=== PATIENT | female | born 1970 | race Caucasian/White ===

== ENCOUNTER 2025-05-30 00:30 | Inpatient (IN) ==
[2025-05-30 01:00] LABS: Hematocrit (blood only) 35.3 % (37.0-47.0); Hemoglobin 12.4 g/dl (12.0-16.0); Mean Corpuscular Hemoglobin 31.7 pg (25.0-34.0); Mean Corpuscular Volume 90.3 fL (80.0-100.0); Platelet Count 101 K/uL (130-400); RDW Standard Deviation 42.1 fL (36.4-46.3); Red Blood Count 3.91 M/uL (4.20-5.40); White Blood Count 13.45 K/ul (4.8-10.8)
[2025-05-30 01:36] LABS: INR 1.0 (0.9-1.1); Partial Thromboplastin Time 26 Seconds (21-31); Prothrombin Time 11.0 Seconds (9.0-12.0)
[2025-05-30 01:37] LABS: Alanine Aminotransferase 18.0 U/L (7-52); Albumin Globulin Ratio 1.2 (0.9-2); Albumin Level 5.0 gm/dl (3.4-5.0); Alkaline Phosphatase 110.0 U/L (34-104); Anion Gap 14.0 (3-11); Bilirubin,Total 1.0 mg/dl (0.2-1.0); Blood Urea Nitrogen 23.0 mg/dl (6-23); Calcium 10.2 mg/dl (8.6-10.3); Carbon Dioxide 26.0 mmol/L (21-32); Chloride 97.0 mmol/L (98-107); Creatinine Clr Calc Pharmacy 31.8 ml/min; Globulin 4.1 gm/dl (2.5-4.0); Glucose 108.0 mg/dl (70-99(Fasting)); Magnesium 1.7 mg/dl (1.7-2.4); Potassium 2.2 mmol/L (3.5-5.1); Sodium 137.0 mmol/L (136-145); Thyroid Stimulating Hormone 5.07 uIu/ml (0.300-4.500); Total Protein 9.1 gm/dl (6.0-8.3)
[2025-05-30 01:44] LABS: ALC (manual) 5.78 K/uL (1.2-3.4); ANC (manual) 7.13 K/uL (1.4-6.5); Large Granular Lymph # (manua 3.50 K/uL; Large Granular Lymph % (manual) 26 %
[2025-05-30] MEDS: MAGNESIUM SULFATE / D5W 1 GM/100 ML BAG IV STA (01:45)
[2025-05-30] MEDS: POTASSIUM CHLORIDE CRTAB 20 MEQ TABCR PO STA ×2 (01:45→17:13)
[2025-05-30] MEDS: POTASSIUM CHLORIDE / WTR 10 MEQ/100 ML PLCT IV SCH (01:45)
--- NOTE | 2025-05-30 02:24 | Emergency Department Note ---
Impression & Plan Hypokalemia, Elevated troponin, Acute kidney injury, Leukocytosis, Sleep apnea ED Provider Note CHIEF COMPLAINT: "My doctor called me and told me my labs were abnormal and they needed to come here" HISTORY OF PRESENT ILLNESS: This 54-year-old female patient presents to the emergency department via private vehicle for evaluation of abnormal labs. The patient states her potassium and creatinine were abnormal, but was uncertain of the levels. She states she had routine labs drawn 2 days ago and was referred to the emergency department due to the abnormalities. The patient denies any chest pain or dyspnea. She denies any palpitations. No leg pain or swelling. No abdominal pain. She is nauseous but this is not unusual for her on her metformin and Mounjaro. The patient denies any other abnormal symptoms and states she feels in her usual state of health at this time. History provided by: Patient REVIEW OF SYSTEMS: A 10 system review of systems was performed with positives and pertinent negatives listed in the history of present illness. All other systems were reviewed and are negative. ALLERGIES: Penicillin PHYSICAL EXAM: VITALS: Vitals are noted on the nurse's note and reviewed by myself. GENERAL: This is a 54-year-old female, in no acute distress, nondiaphoretic, well-developed well-nourished. SKIN: The skin was without rashes, erythema, edema, or bruising. There is no tenting of the skin. Capillary refill less than 2 seconds. HEAD: Normocephalic atraumatic. EYES: Conjunctivae without injection, sclerae without icterus. MOUTH: Mucous membranes moist. NECK: Supple without nuchal rigidity. No lymphadenopathy. Cervical spine is nontender. No JVD. HEART: Regular rate and rhythm without murmurs gallops or rubs. LUNGS: Clear to auscultation bilaterally without wheezes, rales or rhonchi. No retractions or accessory muscle use. ABDOMEN: Positive bowel sounds x 4. Soft, nontender, without masses or organomegaly. Norton sign negative. No guarding or rebound tenderness. MUSCULOSKELETAL: No muscle atrophy, erythema, or edema noted. Full range of motion without joint tenderness in all extremities. No tenderness to palpation. Normal gait. Strength 5/5 throughout. NEURO: Patient was alert and oriented to person place and time. Normal sensation to light and sharp touch. Deep tendon reflexes 2+ throughout. No focal neurological deficits. An order was placed for continuous classroom monitor. The monitor showed a normal sinus rhythm at a ventricular rate of 98 bpm, per my interpretation. EKG was reviewed by myself and found to be sinus tachycardia at a rate of 114 beats per minute and per my interpretation reveals no ST elevation or depression. No T wave inversion. No prior EKG available for comparison. EMERGENCY DEPARTMENT COURSE: The patient was evaluated as above. [facility] resident was able to pull up the patient's outpatient labs and noted she had a potassium of 2.6 and creatinine of 2.2. On arrival to the emergency department, the patient is anxious but in no acute distress. She denies any chest pain or palpitations. EKG as above. IV access was obtained, labs were drawn. Labs reviewed. Per my interpretation, leukocytosis of 13.45. No concerning anemia. Thrombocytopenia with a platelet count of 101,000. INR 1.0. Potassium low at 2.2. Sodium is 137. Creatinine 1.96. AST mildly elevated at 58, ALT is 18. Alkaline phosphatase 110. Troponin is elevated 18.9. Lipase is 179. TSH is elevated 5.070, free T4 is 1.05. Alcohol is elevated at 106.3. Given the hypokalemia, the patient was started on oral and IV potassium as well as IV magnesium. [facility] Please see hospitalist dictation regarding ongoing management of this patient. Case was discussed with the attending physician. I attest that I have personally reviewed the patient medication list. I attest that I have reviewed the patient's blood pressure and it was found to be elevated. Suspect this to be situational in nature. GCS: 15 In the evaluation and treatment of this patient the following differential diagnoses were entertained: Electrolyte abnormality, metabolic abnormality, ACS, dysrhythmia, malignancy, among others. The chart was completed utilizing [employer] Speech voice recognition software. Grammatical errors, random word insertions, pronoun errors, and incomplete sentences are an occasional consequence of this system due to software limitations, ambient noise, and hardware issues. Any formal questions or concerns about the content, text, or information contained within the body of this dictation should be directly addressed to the provider for clarification. Past Med/Surg History Problem List (Updated 05/30/25 @ 04:05 by Irma Lara PA-C) Leukocytosis (Acute) Elevated troponin (Acute) Hypomagnesemia Hypokalemia (Acute) Acute kidney injury (Acute) Vasomotor symptoms due to menopause Prediabetes Hypertension Sleep apnea (Acute) Surgical History History of tonsillectomy and adenoidectomy S/P surgery on nasal septum H/O wisdom tooth extraction History of endometrial ablation Family History Mother Endometrial cancer Father Colorectal cancer Grandmother (Maternal) Diabetes Denies family history of Osteoporosis Heart disease Myocardial infarction Breast cancer Social History Smoking Status: Never smoker Hx Alcohol Use: Yes Alcohol type: hard liquor Hx Substance Use: No Preferred Language: Tajik Compliance Technician Required: No marital status: Current Living Situation: Spouse current occupational status: employed current occupation: [employer] How many Children do You have: 2 How many Children do You have Comment: son in Culinary schoo at [employer] Feels Safe at Home: Yes Safety Concerns: Feels Safe At This Time caffeine: Yes Dental Care, Regularly: Yes Physical Activity Frequency: 1-2 Times per Week Seatbelt Use: always Sunscreen Use: Yes Allergies Allergies Allergy/AdvReac Type Severity Reaction Status Date / Time Penicillins Allergy Unknown UNKNOWN-YRS Verified 05/30/25 01:19 AGO Home Meds Home Medications Medication Instructions Recorded Confirmed cetirizine 10 mg capsule (Zyrtec) 10 mg PO DAILY PRN Congestion 04/24/24 05/30/25 duloxetine 60 mg capsule,delayed 60 mg PO DAILY 04/24/24 05/30/25 release hydroxyzine HCl 10 mg tablet 10 mg PO DIRECTED PRN Anxiety 04/24/24 05/30/25 losartan 50 mg tablet 50 mg PO DAILY 04/24/24 05/30/25 metformin 500 mg tablet,extended 500 mg PO BID 05/30/25 05/30/25 release 24 hr rosuvastatin 40 mg tablet 40 mg PO DAILY 05/30/25 05/30/25 tirzepatide 7.5 mg/0.5 mL 7.5 mg subcut WK 05/30/25 05/30/25 subcutaneous pen injector (Mounjaro) Results & Data (ED) Vital Signs Vital Signs - 24 hr 05/30/25 00:31 05/30/25 00:33 05/30/25 00:39 Temperature 36.8 C Temperature Source Oral Pulse Rate 115 H Pulse Rate [Apical] 124 H Pulse Rhythm [Apical] Regular Pulse Strength [Apical] Normal Respiratory Rate 20 20 Respiratory Effort / Characteristics Non-Labored Non-Labored Spontaneous Respiratory Depth Normal Normal Respiratory Pattern Regular Regular Blood Pressure 141/80 H Blood Pressure [Left Arm] 172/92 H Blood Pressure Mean 100 Blood Pressure Mean [Left Arm] 118 Blood Pressure Position [Left Arm] Sitting Pulse Oximetry 95 97 95 Oxygen Delivery Method Room Air Room Air Room Air Sepsis Recent Fever Within 48 Hours No Sepsis New/Unexplained Change in Mental Status No Sepsis Action Taken by Nursing No Action Required 05/30/25 01:22 05/30/25 02:25 Temperature Temperature Source Pulse Rate 98 H Pulse Rate [Apical] 100 H Pulse Rhythm [Apical] Pulse Strength [Apical] Respiratory Rate 17 Respiratory Effort / Characteristics Non-Labored Spontaneous Respiratory Depth Normal Respiratory Pattern Regular Blood Pressure Blood Pressure [Left Arm] 124/84 Blood Pressure Mean Blood Pressure Mean [Left Arm] 97 Blood Pressure Position [Left Arm] Pulse Oximetry 94 Oxygen Delivery Method Room Air Sepsis Recent Fever Within 48 Hours Sepsis New/Unexplained Change in Mental Status Sepsis Action Taken by Nursing Laboratory Data 05/30/25 00:46 05/30/25 00:46 Lab Results 05/30/25 Range/Units 00:46 WBC 13.45 H (4.8-10.8) K/ul RBC 3.91 L (4.20-5.40) M/uL Hgb 12.4 (12.0-16.0) g/dl Hct 35.3 L (37.0-47.0) % MCV 90.3 (80.0-100.0) fL MCH 31.7 (25.0-34.0) pg MCHC 35.1 (32.0-36.0) g/dL RDW Std Deviation 42.1 (36.4-46.3) fL RDW Coeff of Tiffani 12.7 (11.5-14.5) % Plt Count 101 L (130-400) K/uL MPV 9.8 (9.4-12.4) fL Neutrophils % (Manual) 53 % Lymphocytes % (Manual) 17 % Basophils % (Manual) 4 % Neutrophils # (Manual) 7.13 H (1.40-6.50) K/uL Total Absolute Neuts 7.13 H (1.4-6.5) K/uL Lymphocytes # (Manual) 2.29 (1.2-3.4) K/uL Total Abs Lymphocytes 5.78 H (1.2-3.4) K/uL Basophils # (Manual) 0.54 H (0-0.2) K/uL Large Granular Lymphs 26 % # Lrg Granular Lymphs 3.50 K/uL PT 11.0 (9.0-12.0) Seconds INR 1.0 (0.9-1.1) APTT 26 (21-31) Seconds PTT Ratio 1.0 Sodium 137 (136-145) mmol/L Potassium 2.2 L* (3.5-5.1) mmol/L Chloride 97 L (98-107) mmol/L Carbon Dioxide 26 (21-32) mmol/L Anion Gap 14 H (3-11) BUN 23 (6-23) mg/dl Creatinine 1.96 H (0.6-1.2) mg/dl Est Cr Clr Drug Dosing 31.8 ml/min eGFR 29.67 BUN/Creatinine Ratio 11.7 (10-20) Glucose 108 H (70-99(Fasting)) mg/dl Calcium 10.2 (8.6-10.3) mg/dl Magnesium 1.7 (1.7-2.4) mg/dl Total Bilirubin 1.0 (0.2-1.0) mg/dl AST 58 H (13-39) U/L ALT 18 (7-52) U/L Alkaline Phosphatase 110 H (34-104) U/L Troponin I High Sens 18.9 H (0-14) pg/ml Total Protein 9.1 H (6.0-8.3) gm/dl Albumin 5.0 (3.4-5.0) gm/dl Globulin 4.1 H (2.5-4.0) gm/dl Albumin/Globulin Ratio 1.2 (0.9-2) TSH 5.070 H (0.300-4.500) uIu/ml Free T4 1.05 (0.61-1.60) ng/dl Administered Medications Lactated Ringer's (Lr) 1,000 mls @ 125 mls/hr IV .Q8H MADELEINE Stop: 05/30/25 18:29 Last Admin: 05/30/25 03:14 Dose: 125 mls/hr Documented By: GABRIEL Discontinued Medications Potassium Chloride (K Jaime / Wtr) 10 meq in 100 mls @ 100 mls/hr IV Q1H MADELEINE Stop: 05/30/25 03:44 Last Admin: 05/30/25 03:14 Dose: 100 mls/hr Documented By: Infusion: 05/30/25 03:05 Dose: Infused Documented By: Admin: 05/30/25 01:45 Dose: 100 mls/hr Documented By: WILFRID Magnesium Sulfate/Dextrose (Magnesium Sulfate / D5w) 1 gm in 100 mls @ 100 mls/hr IV NOW STA Stop: 05/30/25 02:40 Last Infusion: 05/30/25 03:05 Dose: Infused Documented By: Admin: 05/30/25 01:45 Dose: 100 mls/hr Documented By: WILFRID Potassium Chloride (Potassium Chloride Crtab 20 Meq Tabcr) 40 meq PO NOW STA Stop: 05/30/25 01:40 Last Admin: 05/30/25 01:45 Dose: 40 meq Documented By: WILFRID Discharge Plan Visit Data Chief Complaint: Abnormal Labs/Diagnostic Testing Stated Complaint: ABNORMANL LABS, DR. REFERRED ED Provider: Ericka Wilhelm ED Midlevel Provider: Irma Lara Discharge Problem: Hypokalemia, Elevated troponin, Acute kidney injury, Leukocytosis, Sleep apnea Patient Disposition: Admitted As Inpatient Condition: Good Discharge Instructions Interventions: ED Discharge Assessment Last Done: 05/30/25 02:52
--- NOTE | 2025-05-30 02:37 | History & Physical Report ---
Date of Service May 30, 2025 Assessment & Plan (1) Acute kidney injury: (2) Hypokalemia: (3) Hypomagnesemia: (4) Elevated troponin: (5) Leukocytosis: Plan Patient is a 54-year-old female with past medical history of hypertension, hyperlipidemia, prediabetes, WALT. Patient presented due to abnormal labs indicating a low potassium and high creatinine on 05/28. She was found to have a creatinine of 1.96, K+ 2.2, mag 1.7, troponin 18.8. She is being admitted for an RICARDO. #RICARDO/hypokalemia/hypomagnesemia - suspect likely prerenal in the setting of dehydration from GI losses with Mounjaro.. Cr increased from 0.8 -> 1.96, BUN 23, K+ 2.2, mg 1.7. - Biofire ordered - possibly viral cause contributing to dehydration - UA ordered to workup potential infectious cause with mild leukocytosis (WBC 13.45) post void bladder scan ordered - 0 mL 20 mEq IV KCl +40 mEq p.o. in ED 21G IV magnesium in the ED LR at 125 mL/hour x 2 L BMP and magnesium recheck at 1400 05/30 and with am labs - Hold losartan and metformin - if no other etiologies determined, consider discontinuing Mounjaro #elevated troponin initial troponin 18.98. EKG showed sinus tachycardia however no ischemic changes. Patient denies any chest pain. Likely demand in the setting of RICARDO above. 2-hour repeat ordered, trend every 6 hours EKG with any chest pain as needed Replete electrolytes as above Monitor on telemetry #Leukocytosis WBC 13.45 with neutrophil predominance and noted lymphocytes and basophils. No infectious etiology determined, patient asymptomatic. UA ordered as above - lipase ordered - biofire ordered Trend CBC with differential #HTN holding losartan, recently discontinued Nebivolol #Prediabetes holding metformin and Mounjaro. Loose SSI ordered. #HLD continue statin #Mental health continue duloxetine and as needed hydroxyzine VTE ppx: SCDs, low risk and thrombocytopenia (plt count 101) Dispo: med/tele Admission and Anticipated Discharge Date Admission Date: 05/30/25 History of Present Illness Chief Complaint: abnormal labs Primary Care Provider: Rosario Johnson DO Patient is a 54-year-old female with past medical history of hypertension, hyperlipidemia, prediabetes, WALT. Patient presented due to abnormal labs indicating a low potassium and high creatinine on 05/28. She was found to have a creatinine of 1.96, K+ 2.2, mag 1.7, troponin 18.8. She is being admitted for an RICARDO. Patient seen at bedside with her daughter present. She stated the only reason she came in is because she received a phone call about her labs. She denies any urinary symptoms such as dysuria, hematuria, difficulty urinating, abdominal pain, flank pain. Patient stated she has been on Mounjaro since December and has been experiencing daily nausea, intermittent vomiting, and daily diarrhea (multiple episodes per day). She feels well-hydrated and stated that her urine is typically light yellow, no change in recent color. She does try to drink fluids however does have poor p.o. intake with the nausea. She denies any chest pain or shortness of breath. She denies any nicotine use. She does drink approximately 3 shots of liquor per day for the past several years. She was previously on CPAP for sleep apnea however was unable to tolerate this and stated she had her tonsils removed and did not needed anymore. She was recently taken off nebivolol 10 mg daily for blood pressure however remains on losartan. She has an appointment with her PCP 06/04 to discuss side effects from Mounjaro however A1c improved from 11 to 7. She wishes to be full code. Allergies Allergy/AdvReac Type Severity Reaction Status Date / Time Penicillins Allergy Unknown UNKNOWN-YRS Verified 05/30/25 01:19 AGO Home Medications Medication Instructions Recorded Confirmed Type cetirizine 10 mg capsule (Zyrtec) 10 mg PO DAILY PRN Congestion 04/24/24 05/30/25 History duloxetine 60 mg capsule,delayed 60 mg PO DAILY 04/24/24 05/30/25 History release hydroxyzine HCl 10 mg tablet 10 mg PO DIRECTED PRN Anxiety 04/24/24 05/30/25 History losartan 50 mg tablet 50 mg PO DAILY 04/24/24 05/30/25 History metformin 500 mg tablet,extended 500 mg PO BID 05/30/25 05/30/25 History release 24 hr rosuvastatin 40 mg tablet 40 mg PO DAILY 05/30/25 05/30/25 History tirzepatide 7.5 mg/0.5 mL 7.5 mg subcut WK 05/30/25 05/30/25 History subcutaneous pen injector (Suzanne) Past Med/Surg History Problem List (Updated 05/30/25 @ 04:05 by Irma Lara PA-C) Leukocytosis (Acute) Elevated troponin (Acute) Hypomagnesemia Hypokalemia (Acute) Acute kidney injury (Acute) Vasomotor symptoms due to menopause Prediabetes Hypertension Sleep apnea (Acute) Surgical History History of tonsillectomy and adenoidectomy S/P surgery on nasal septum H/O wisdom tooth extraction History of endometrial ablation Family History Mother Endometrial cancer Father Colorectal cancer Grandmother (Maternal) Diabetes Denies family history of Osteoporosis Heart disease Myocardial infarction Breast cancer Social History Smoking Status: Never smoker Hx Alcohol Use: Yes Alcohol type: hard liquor Hx Substance Use: No Preferred Language: Cook Islander Reinforcement Maker Required: No marital status: Current Living Situation: Spouse current occupational status: employed current occupation: [employer] How many Children do You have: 2 How many Children do You have Comment: son in Culinary schoo at [employer] Feels Safe at Home: Yes Safety Concerns: Feels Safe At This Time caffeine: Yes Dental Care, Regularly: Yes Physical Activity Frequency: 1-2 Times per Week Seatbelt Use: always Sunscreen Use: Yes Review of Systems Review of Systems: see HPI Physical Exam Physical Exam: The patient is awake, alert and oriented 3, well developed and well nourished, normocephalic and atraumatic, in no acute distress. Non-toxic appearing. HEENT- EOMI, mucous membranes dry. Hearing grossly intact. Heart-normal S1 and S2. No murmurs, rubs or gallops. Lungs-clear bilaterally, no respiratory distress, no accessory muscle use. Abdomen-normal bowel sounds and soft. No ascites noted. Non-tender. Extremities- no clubbing, cyanosis, or edema. Rheumatologic-normal range of motion. Psychiatric-normal affect. Results & Data Results & Data Vital Signs (Past 12 Hours) Vital Signs Temp Pulse Pulse Resp BP BP Pulse Ox 05/30/25 01:22 98 H 05/30/25 00:39 95 05/30/25 00:33 36.8 C 115 H 20 141/80 H 97 05/30/25 00:31 124 H 20 172/92 H 95 O2 Del Method 05/30/25 01:22 05/30/25 00:39 Room Air 05/30/25 00:33 Room Air 05/30/25 00:31 Room Air Laboratory Results reviewed cbc, cmp, mag, troponin ordered lipase and UA Diagnostic Findings none Medications Administered ED - KCl 20 MeQ IV, KCl 40 meq PO, mag 1 g IV ECG Additional Comments: Sinus tachycardia, rate 114 QT 292 Code Status & VTE Plan Code Status full code VTE Prophylaxis Plan VTE Prophylaxis will be ordered: Yes Supervising Physician Co-Signing Physician Notes Attending addendum: I have physically seen this patient, have supervised the FRAN's activities, and agree with the H&P unless as otherwise noted. Assessment and Plan: The patient is a 54-year-old female with past medical history including hypertension, hyperlipidemia, prediabetes, WALT, and obesity treated with Mounjaro. She presents to the emergency department due to abnormal labs in the outpatient setting performed on 05/28, indicating abnormal kidney function, including low potassium and high creatinine. The [facility]. Acute kidney injury/hypokalemia/hypomagnesemia- Creatinine on admission 1.96, with base 0.80 Potassium 2.2, for which she was given potassium chloride 20 mEq IV, and 40 mEq p.o. Magnesium 1.7, which she received 2 g magnesium sulfate IV LR 125 mL/h x 2 L Repeat BMP and magnesium levels as noted in every morning Holding losartan and metformin Prediabetes/weight management- Patient reports that she has been able to stop most diabetes medications since she has been on Mounjaro. Her hemoglobin A1c decreased from 11-7. Placed on Accu-Cheks with SSI If no other cause of abnormal labs and symptoms found, then Mounjaro may need to be discontinued Her respiratory symptoms- Patient reports that she recently traveled to [place], and is noticing chest congestion and head neck symptoms. Will order a BioFire test, and treat symptomatically otherwise Elevated troponin/hypertension- Initial troponin 18.9, with follow-up 18.4 EKG with no acute findings Supply/demand mismatch Repeat laboratories in a.m. Follow on telemetry Hold losartan. Nebivolol was recently discontinued Remaining orders and notations as noted PG Care Time/CCT Total # of Minutes Spent Total Time Spent with Patient: Total time spent is greater than 50% in coordination of care (as documented) at patient's floor/unit and/or counseling patient: Coding Level of Care Code 34221 INT INP/OBS CARE 3/75MIN Diagnoses Acute kidney injury N17.9 Hypokalemia E87.6 Hypomagnesemia E83.42 Elevated troponin R79.89 Leukocytosis D72.829
[2025-05-30] MEDS ORDERED: DEXTROSE 50% 50 ML SYRINGE IV PRN (02:52)
[2025-05-30] MEDS ORDERED: DOCUSATE SODIUM 100 MG CAP PO PRN (02:52)
[2025-05-30] MEDS ORDERED: MELATONIN 3 MG TAB PO PRN (02:52)
[2025-05-30] MEDS ORDERED: GLUCAGON FOR INJ 1 MG VIAL SQ PRN (02:52)
[2025-05-30] MEDS ORDERED: CARBOHYDRATES FOR HYPOGLYCEMIA PO PRN (02:52)
[2025-05-30] MEDS ORDERED: GLUCOSE 40% GEL 15 GM TUBE PO PRN (02:52)
[2025-05-30] MEDS ORDERED: ONDANSETRON INJ 2 MG/ML 2 ML VIAL IV PRN (02:52)
[2025-05-30] MEDS ORDERED: GLUCOSE 10 TAB/TUBE PO PRN (02:52)
[2025-05-30] MEDS ORDERED: ACETAMINOPHEN 325 MG TAB PO PRN (02:52)
[2025-05-30] MEDS: LACTATED RINGER'S 1,000 ML IV SCH ×2 (03:14→17:13)
[2025-05-30 03:18] LABS: T4 Free Thyroxine 1.05 ng/dl (0.61-1.60)
[2025-05-30 03:45] LABS: Lipase 179.0 U/L (11-82)
[2025-05-30 04:10] LABS: Appearance Urine Cloudy (Clear); Bacteria Urine Automated None Seen (None Seen); Glucose Urine UA Negative (Negative); RBC Urine Automated 0-2 /hpf (0-2); WBC Urine Automated 0-5 /hpf (0-5)
[2025-05-30 04:30] LABS: Chlamydia pneumoniae PCR Not Detected (NotDetected); Coronavirus 229E PCR Not Detected (NotDetected); Coronavirus CoV-2 (COVID19)PCR Not Detected (NotDetected); Coronavirus HKU1 PCR Not Detected (NotDetected); Coronavirus NL63 PCR Not Detected (NotDetected); Coronavirus OC43PCR Not Detected (NotDetected); Human Metapneumovirus PCR Not Detected (NotDetected); Parainfluenza Virus 1 PCR Not Detected (NotDetected); Parainfluenza Virus 2 PCR Not Detected (NotDetected); Parainfluenza Virus 3 PCR Not Detected (NotDetected); Parainfluenza Virus 4 PCR Not Detected (NotDetected); Respiratory Syncytial VirusPCR Not Detected (NotDetected); Rhinovirus/Enterovirus PCR Not Detected (NotDetected)
--- NOTE | 2025-05-30 05:57 | XRay Report ---
EXAM: XR chest 1V portable CLINICAL HISTORY: hypoxia TECHNIQUE: An X-ray image of the chest was obtained in the AP projection. COMPARISON: No prior studies are available for comparison. FINDINGS: Pulmonary Parenchyma: The lungs are clear bilaterally. There is no evidence of consolidation, collapse, or focal opacities. No pulmonary nodules are identified. There is no evidence of pleural effusion or pleural thickening. Heart and Mediastinum: The heart size and shape are normal. There is no mediastinal widening or masses. No hilar or mediastinal lymphadenopathy is present. Bony Thorax: The bony thorax appears intact without fractures or deformities. Soft Tissues: The soft tissues overlying the chest wall are unremarkable. IMPRESSION: No evidence of consolidation or pleural effusion. Electronically signed by Tramaine Alexandra 05-30-2025 05:57 AM
[2025-05-30] MEDS: INSULIN ASPART PER UNIT CHARGE SC SCH (07:52)
--- NOTE | 2025-05-30 08:00 | Communication Note ---
Patient is a 54-year-old female with past medical history of hypertension, hyperlipidemia, prediabetes, WALT. Patient presented due to abnormal labs indicating a low potassium and high creatinine on 05/28. She was found to have a creatinine of 1.96, K+ 2.2, mag 1.7, troponin 18.8. She is being admitted for an RICARDO. #RICARDO/hypokalemia/hypomagnesemia - suspect likely prerenal in the setting of dehydration from GI losses with Mounjaro - Cr increased from 0.8 -> 1.96, BUN 23, K+ 2.2, mg 1.7. - Biofire ordered, carter-negative - UA: 1) Ur Protein, 3+ 2) 3) Hyaline casts, 4) Granular casts ordered to workup potential infectious cause with mild leukocytosis (WBC 13.45) post void bladder scan ordered - 0 mL 20 mEq IV KCl +40 mEq p.o. in ED; 21G IV magnesium in the ED LR at 125 mL/hour x 2 L BMP and Mg recheck at 1400 / and with am labs - Held losartan and metformin; if no other etiologies determined, - should consider decreasing Mounjaro dosage back to 5mg, subQ, weekly (pt Sx free at that dosage) #Alcohol intoxication/Elevated transaminase/Alcohol use disorder - Ethanol, 106.3 upon admission; AST, 58 and ALT, 18 upon admission - CMP tomorrow - Ativan for AWSS ordered for pt in case she shows withdrawal Sx - thiamine, 100 mg, IV, daily and folic acid, 1 mg, IV, daily #elevated troponin initial HS troponin 18.9 --> 18.4; EKG: sinus tachycardia, no ischemic changes. No CP. Likely mild demand ischemia. 2-hour repeat ordered, trend every 6 hours EKG with any chest pain as needed, Replete electrolytes as above, Monitor on telemetry #Leukocytosis WBC 13.45 with neutrophil predominance and noted lymphocytes and basophils. No infectious etiology determined, patient asymptomatic. UA ordered as above - lipase ordered, WNL Trend CBC with differential #HTN holding losartan, recently discontinued Nebivolol #Prediabetes holding metformin and Mounjaro. Loose SSI ordered. #HLD continue statin #Mental health continue duloxetine and as needed hydroxyzine Code status: Full code VTE ppx: SCDs, low risk and thrombocytopenia (plt count 101) Dispo: med/tele GABII: SATYA I personally examined the patient and verified all tineo points of history and exam, discussed case, and agree with decision making with Dr Rothman feeling better toleratingPO better labs improving but still fairly abnormal vitals noted nad heent nc at mmm breathing unlabored no accessory muscles good effort skin no rashes no pallor or icterus neuro no focal deficits Acute renal failure, hypokalemia - poor PO intake likely predominantly related to mounjaro ADR; ETOH intake certainly could be contributing as well EtOH abuse - discussed - sounds like drinking for stress management. discussed more productive coping skills. no s/s withdrawal, no hx withdrawal. follow; at risk protocol. thiamine/folate elevated troponin - nonspecific - could be poor clearance related to acute renal failure vs mild demand ischemia from volume depletion vs mild EtOH induced myocardial toxicity. fortunately only nominal elevation DVT proph - ambulation, SCDs medical, hopefully home tomorrow
[2025-05-30] MEDS: ROSUVASTATIN CALCIUM 20 MG TAB PO SCH (08:43)
--- NOTE | 2025-05-30 09:06 | Electrocardiogram Report ---
Test Reason : Blood Pressure : */* mmHG Vent. Rate : 114 BPM Atrial Rate : 114 BPM P-R Int : 196 ms QRS Dur : 94 ms QT Int : 212 ms P-R-T Axes : 67 47 227 degrees QTcB Int : 292 ms Sinus tachycardia Septal infarct , age undetermined Abnormal ECG No previous ECGs available Confirmed by Wicho Floyd ([id number]) on 05/30/2025 9:05:40 AM Referred By: Rosario Johnson Confirmed By: Wicho Floyd
[2025-05-30] MEDS ORDERED: LORazepam 1 MG TAB PO PRN ×2 (11:22)
[2025-05-30] MEDS: FOLIC ACID 1 MG in SYRINGE 9.8 ML IV SCH (11:49)
[2025-05-30] MEDS: THIAMINE HCL 100 MG in SYRINGE 9 ML IV SCH (11:49)
[2025-05-30 15:50] LABS: Anion Gap 13.0 (3-11); Blood Urea Nitrogen 22.0 mg/dl (6-23); Calcium 10.2 mg/dl (8.6-10.3); Carbon Dioxide 26.0 mmol/L (21-32); Chloride 98.0 mmol/L (98-107); Creatinine Clr Calc Pharmacy 34.2 ml/min; Glucose 110.0 mg/dl (70-99(Fasting)); Magnesium 1.8 mg/dl (1.7-2.4); Potassium 2.4 mmol/L (3.5-5.1); Sodium 137.0 mmol/L (136-145)
[2025-05-30] MEDS: POTASSIUM CHLORIDE CRTAB 20 MEQ TABCR PO SCH (20:18)
[2025-05-30] MEDS: LORazepam 1 MG TAB PO PRN (22:01)
[2025-05-31 03:09] VITALS: TEMP 98.4
[2025-05-31 07:18] VITALS: BP 158/91; RESP 20; O2SAT 98
--- NOTE | 2025-05-31 07:33 | Hospitalist Progress Note ---
Date of Service May 31, 2025 Assessment & Plan (1) Acute kidney injury: (2) Hypokalemia: (3) Hypomagnesemia: (4) Elevated troponin: (5) Leukocytosis: Plan Patient is a 54-year-old female with past medical history of hypertension, hyperlipidemia, prediabetes, WALT. Patient presented due to abnormal labs indicating a low potassium and high creatinine on 05/28. She was found to have a creatinine of 1.96, K+ 2.2, mag 1.7, troponin 18.8. She is being admitted for an RICARDO. #RICARDO/hypokalemia/hypomagnesemia - suspect likely prerenal in the setting of dehydration from GI losses with Mounjaro.. Cr increased from 0.8 -> 1.96, BUN 23, K+ 2.2, mg 1.7. - Biofire ordered - possibly viral cause contributing to dehydration - UA ordered to workup potential infectious cause with mild leukocytosis (WBC 13.45) post void bladder scan ordered - 0 mL 20 mEq IV KCl +40 mEq p.o. in ED 21G IV magnesium in the ED LR at 125 mL/hour x 2 L BMP and magnesium recheck at 1400 10/ and with am labs - Hold losartan and metformin - if no other etiologies determined, consider discontinuing Mounjaro #Alcohol intoxication/Elevated transaminase/Alcohol use disorder - Ethanol, 106.3 upon admission; AST, 58 and ALT, 18 upon admission - CMP tomorrow - Ativan for AWSS ordered for pt in case she shows withdrawal Sx - thiamine, 100 mg, IV, daily and folic acid, 1 mg, IV, daily #elevated troponin initial troponin 18.98. EKG showed sinus tachycardia however no ischemic changes. Patient denies any chest pain. Likely demand in the setting of RICARDO above. 2-hour repeat ordered, trend every 6 hours EKG with any chest pain as needed Replete electrolytes as above Monitor on telemetry #Leukocytosis WBC 13.45 with neutrophil predominance and noted lymphocytes and basophils. No infectious etiology determined, patient asymptomatic. UA ordered as above - lipase ordered - biofire ordered Trend CBC with differential #HTN holding losartan, recently discontinued Nebivolol #Prediabetes holding metformin and Mounjaro. Loose SSI ordered. #HLD continue statin #Mental health continue duloxetine and as needed hydroxyzine VTE ppx: SCDs, low risk and thrombocytopenia (plt count 101) Dispo: med/tele Admission and Anticipated Discharge Date Admission Date: May 30, 2025 Subjective Overnight pt give 1 mg of Ativan for TOBY of 6. This morning, pt reports Review of Systems Review of Systems: As pe HPI Physical Exam Physical Exam: Gen: NAD HENT: Normocephalic, atraumatic. External ear without deformities. Trachea midline, no thyromegaly Cardio: RRR, no murmurs or clicks. Resp: CTAB, Equal bilateral chest rise, no increased work of breathing GI: Non distended, soft, non tender, normoactive bowel sounds : Lopez in place MSK: Moving all 4 extremities independently Skin: Dry, of normal skin tone, Neuro: A& O x 3, normal affect Results & Data Results & Data Vital Signs (Past 12 Hours) Vital Signs Temp Pulse Resp BP BP Pulse Ox O2 Del Method 05/31/25 07:17 36.9 C 100 H 20 158/91 H 98 Room Air 05/31/25 03:08 36.9 C 100 H 18 154/92 H 95 Room Air 05/31/25 00:01 36.8 C 103 H 16 167/98 H 94 Room Air 05/30/25 21:58 36.8 C 105 H 18 185/97 H 97 Room Air
[2025-05-31 09:03] LABS: Hematocrit (blood only) 30.9 % (37.0-47.0); Hemoglobin 10.7 g/dl (12.0-16.0); Mean Corpuscular Hemoglobin 31.8 pg (25.0-34.0); Mean Corpuscular Volume 91.7 fL (80.0-100.0); Platelet Count 75 K/uL (130-400); RDW Standard Deviation 42.1 fL (36.4-46.3); Red Blood Count 3.37 M/uL (4.20-5.40); White Blood Count 8.16 K/ul (4.8-10.8)
[2025-05-31 09:28] LABS: Alanine Aminotransferase 13.0 U/L (7-52); Albumin Globulin Ratio 1.2 (0.9-2); Albumin Level 4.1 gm/dl (3.4-5.0); Alkaline Phosphatase 81.0 U/L (34-104); Anion Gap 8.0 (3-11); Bilirubin,Total 1.0 mg/dl (0.2-1.0); Blood Urea Nitrogen 20.0 mg/dl (6-23); Calcium 9.1 mg/dl (8.6-10.3); Carbon Dioxide 27.0 mmol/L (21-32); Chloride 103.0 mmol/L (98-107); Creatinine Clr Calc Pharmacy 41.8 ml/min; Globulin 3.4 gm/dl (2.5-4.0); Glucose 150.0 mg/dl (70-99(Fasting)); Potassium 2.5 mmol/L (3.5-5.1); Sodium 138.0 mmol/L (136-145); Total Protein 7.5 gm/dl (6.0-8.3)
[2025-05-31 09:58] LABS: Immature Granulocytes # (auto) 0.03 K/uL (0.01-0.20); Immature Granulocytes % (auto) 0.4 %
--- NOTE | 2025-05-31 13:37 | Discharge Summary ---
Date of Service May 31, 2025 Admission HPI Per Admitting Provider Patient is a 54-year-old female with past medical history of hypertension, hyperlipidemia, prediabetes, WALT. Patient presented due to abnormal labs indicating a low potassium and high creatinine on 05/28. She was found to have a creatinine of 1.96, K+ 2.2, mag 1.7, troponin 18.8. She is being admitted for an RICARDO. Patient seen at bedside with her daughter present. She stated the only reason she came in is because she received a phone call about her labs. She denies any urinary symptoms such as dysuria, hematuria, difficulty urinating, abdominal pain, flank pain. Patient stated she has been on Mounjaro since December and has been experiencing daily nausea, intermittent vomiting, and daily diarrhea (multiple episodes per day). She feels well-hydrated and stated that her urine is typically light yellow, no change in recent color. She does try to drink fluids however does have poor p.o. intake with the nausea. She denies any chest pain or shortness of breath. She denies any nicotine use. She does drink approximately 3 shots of liquor per day for the past several years. She was previously on CPAP for sleep apnea however was unable to tolerate this and stated she had her tonsils removed and did not needed anymore. She was recently taken off nebivolol 10 mg daily for blood pressure however remains on losartan. She has an appointment with her PCP 06/04 to discuss side effects from Mounjaro however A1c improved from 11 to 7. She wishes to be full code. Principal Diagnosis RICARDO, electrolyte disturbances Discharge Exam Gen: NAD HENT: Normocephalic, atraumatic. Trachea midline, no thyromegaly Cardio: RRR, no murmurs or clicks. Resp: CTAB, Equal bilateral chest rise, no increased work of breathing GI: Non distended, soft, non tender, normoactive bowel sounds MSK: Moving all 4 extremities independently Skin: Dry, of normal skin tone, Neuro: A& O x 3, normal affect Discharge Data Allergies Allergy/AdvReac Type Severity Reaction Status Date / Time Penicillins Allergy Unknown UNKNOWN-YRS Verified 05/30/25 01:19 AGO Consultations 05/30/25 01:46 ED Decision to Admit Stat Hospital Course (1) Acute kidney injury: (2) Hypokalemia: (3) Hypomagnesemia: (4) Elevated troponin: (5) Leukocytosis: (6) Alcohol use disorder: Plan Patient is a 54-year-old female with past medical history of hypertension, hyperlipidemia, prediabetes, WALT. Patient presented due to abnormal labs indicating a low potassium and high creatinine on 05/28. She was found to have a creatinine of 1.96, K+ 2.2, mag 1.7, troponin 18.8. She is being admitted for an RICARDO. #RICARDO/hypokalemia/hypomagnesemia - suspect likely prerenal in the setting of dehydration from GI losses with Mounjaro. Biofire and UA were negative. Given 20 mEq IV KCl +40 mEq p.o. in ED and well as 2 G IV magnesium and LR at 125 mL/hour x 2 L. Cr this morning is 1.49, K remains 2.5 - K remains low likely due to long-term depletion. Will require time to increase serum levels. - Holding losartan and metformin - holding Mounjaro until follow up with PCP to discuss reduction in dosage #Alcohol intoxication/Elevated transaminase/Alcohol use disorder - Ethanol, 106.3 upon admission; AST, 58 and ALT, 18 upon admission - Ativan for AWSS ordered for pt in case she shows withdrawal Sx Pt received 1 dose ativan overnight for AWSS of 6. Score was 4 this morning. - thiamine, 100 mg, IV, daily and folic acid, 1 mg, IV, daily #elevated troponin initial troponin 18.98. EKG showed sinus tachycardia however no ischemic changes. Patient denies any chest pain. Likely demand in the setting of RICARDO above. Troponin 18.4 --> 15.1 --> 13.8 EKG with any chest pain as needed Replete electrolytes as above Monitor on telemetry #Leukocytosis WBC 13.45 with neutrophil predominance and noted lymphocytes and basophils. No infectious etiology determined, patient asymptomatic. UA negative - lipase normal - biofire negative WBC at 8.16 this morning #HTN holding losartan, recently discontinued Nebivolol #Prediabetes holding metformin and Mounjaro. Loose SSI ordered. #HLD continue statin #Mental health continue duloxetine and as needed hydroxyzine VTE ppx: SCDs, low risk and thrombocytopenia (plt count 101) Dispo: med/tele Total Time Total Time Spent Total Time Spent (In Minutes): per attending physician's attestation Discharge Plan Discharge Items Patient Disposition: Home - Self-Care Reason For Visit: RICARDO, HYPOKALEMIA, ELEVATED TROP Discharge Diagnosis: RICARDO, electrolyte abnormalities Condition on Discharge: Good Activity: Resume your previous activity Non-emergency contact: Primary Care Provider Call non-emergency contact if: your symptoms worsen Follow-up/Referrals: Rosario Sanders DO [Primary Care Provider] - 06/06/25 10:25 am Diet: Carb Consistent or DM2 Ambulatory Orders: Basic Metabolic Panel (Routine) Timeframe: 4 Days Location: Determined by Patient Ordered By: Loreta Cota Magnesium (Routine) Timeframe: 4 Days Location: Determined by Patient Ordered By: Loreta Lai Attending Provider Instructions: You were admitted for kidney injury and low potassium and magnesium likely due to persistent GI upset at home. Your kidney function improved and replaced magnesium. Your potassium remains low, but we will continue having you take potassium at home. 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 Hold Mounjaro until you see your PCP to discuss reduction in dosage. You may resume the rest of your home medications Pending Studies at Discharge: No Stand-Alone Forms: My [facility], Smoking Cessation Medications and DC Order Prescriptions: New potassium chloride 20 mEq tablet extended release 40 meq PO BID 10 Days Qty: 40 0RF Continued duloxetine 60 mg capsule,delayed release(DR/EC) 60 mg PO DAILY Rx Instructions: LAST FILLED 01/18/25 FOR 90 CAPS/90 DAYS, PER PT "TAKE 30 MG"--LAST FILLED 01/01/25 FOR 90 DAYS/90 CAPS. hydroxyzine HCl 10 mg tablet 10 mg PO DIRECTED PRN (Reason: Anxiety) Rx Instructions: LAST FILLED 01/18/25 FOR 180 TABS/30 DAYS. losartan 50 mg tablet 50 mg PO DAILY Rx Instructions: LAST FILLED 01/18/25 FOR 90 TABS/90 DAYS. Zyrtec 10 mg capsule 10 mg PO DAILY PRN (Reason: Congestion) metformin 500 mg tablet extended release 24 hr 500 mg PO BID Rx Instructions: ORDERED 1,000 MG BID, PER PT "ONLY TAKE 500 MG BID". LAST FILLED 01/18/25 FOR 360 TABS/90 DAYS. rosuvastatin 40 mg tablet 40 mg PO DAILY Rx Instructions: LAST FILLED 01/01/25 FOR 90 TABS/90 DAYS. Held Mounjaro 7.5 mg/0.5 mL pen injector 7.5 mg SUBCUT WK Hold Instructions: Resume on 06/10/25. Discuss dosage with your PCP Rx Instructions: MONDAYS Discharge Orders: Discharge Order (Routine); Ordered 05/31/25 Ordered By: Loreta Cota Admission Data Admit Date/Time: 05/30/25 02:41 Attending Provider: Farhan Dorman Admit Provider: Gabriel Lloyd Primary Care Provider: Rosario Sanders Other Providers: Gabriel Lloyd Other Interventions: Discharge Summary Assessment (RN) Last Done: 05/31/25 14:16 Supervising Physician Co-Signing Physician Notes I personally examined the patient and verified all tineo points of history and exam, discussed case, and agree with decision making with Dr Cota Feeling better, eating and drinking well. Feeling up to going home. Extensive discussions with patient and on Mounjaro, diabetes management, lifestyle change, anxiety/stress management, alcohol intake/etc. Vitals noted, in general she is awake and alert pleasant no distress. HEENT normocephalic atraumatic mucous membranes moist. Breathing unlabored no accessory muscle use good effort. Skin without rashes pallor or icterus. Neuro without focal deficits. Acute renal failure, hypokalemia - poor PO intake likely predominantly related to mounjaro ADR; ETOH intake certainly could be contributing as wellImproved enough to go home with p.o. intake. Outpatient labs next week. Ongoing potassium supplementation. Suspect K is persistently low and slow to rise due to fairly severe deficiencyI suspect the K that we are giving her is shifting intracellularreflecting a fairly small improvement in serum concentration, discussed with patient and I anticipate somewhere across the course of n ext week her K will stabilize to where she no longer needs oral supplementation. EtOH abuse - discussed - sounds like drinking for stress management. Again discussed more productive coping skills. no s/s withdrawal, no hx withdrawal. follow; at risk protocol. thiamine/folate elevated troponin - nonspecific - could be poor clearance related to acute renal failure vs mild demand ischemia from volume depletion vs mild EtOH induced myocardial toxicity. fortunately only nominal elevation DVT proph - ambulation, SCDs safe/stable for home Resident Activity Tracking Resident Involvement: Resident Care Provided Care Provided: Adult [facility] Medicine
[2025-05-31 14:17] VITALS: PULSE 94
--- NOTE | 2025-05-31 16:59 | Billing Data ---
Date of Service May 31, 2025 Coding Level of Care Code 05869 IN/OBS DISCH 30 MIN/LESS
== END 2025-05-31 14:40 | disposition home or self-care (01) | DRG 683 ==
LOC: ED 00:30 → SUATTDRO 02:41 → EDINP 02:41 → 2S 02:52 → 3W 21:49